=== PATIENT | female | born 1980 | race Caucasian/White ===

== ENCOUNTER 2017-03-17 05:55 | Day surgery (SDC) | payer MEDICAID ==
[2017-03-17] VITALS (14 sets, daily range): BP systolic 103–134; BP diastolic 56–81; PULSE 59–92; RESP 13–22; Ht 144.8 cm; Wt 59.0 kg
[~2017-03-17] VITALS: Ht 144.8 cm; Wt 59.0 kg
[2017-03-17 09:12] LABS: BASOPHIL # 0.1 10^3/ul (0.0-0.1); BASOPHILS % 0.7 % (0.0-2.0); EOSINOPHILS # 0.6 10^3/ul (0.0-0.5); EOSINOPHILS % 8.3 % (0.0-7.0); HEMOGLOBIN 13.8 g/dl (12.0-16.0); LYMPHOCYTES # 2.7 10^3/ul (0.8-2.9); LYMPHOCYTES % 37.7 % (15.0-51.0); MEAN CORPUSCULAR HEMOGLOBIN 30.5 pg (29.0-33.0); MEAN CORPUSCULAR HGB CONC 33.7 g/dl (32.0-37.0); MEAN CORPUSCULAR VOLUME 90.7 fl (82.0-101.0); MEAN PLATELET VOLUME 8.8 fl (7.4-10.4); MONOCYTE # 0.4 10^3/ul (0.3-0.9); MONOCYTES % 5.8 % (0.0-11.0); NEUTROPHIL # 3.4 10^3/ul (1.6-7.5); NEUTROPHILS % 47.2 % (39.0-77.0); PLATELET COUNT 258 10^3/UL (140-415); RED BLOOD COUNT 4.52 10^6/ul (4.20-5.40); RED CELL DISTRIBUTION WIDTH 13.2 % (11.5-14.5); WHITE BLOOD COUNT 7.1 10^3/ul (4.8-10.8)
[2017-03-17] MEDS ORDERED: FENTAnyl 50 MCG/ML VIAL ONE (09:27)
[2017-03-17] MEDS ORDERED: MIDAZOLAM 1 MG/ML 2 ML INJ ONE (09:27)
[2017-03-17] MEDS ORDERED: PROPOFOL 20 ML ONE (09:27)
[2017-03-17] MEDS ORDERED: METOCLOPRAMIDE 10 MG INJ ONE (09:37)
[2017-03-17] MEDS ORDERED: ONDANSETRON 4 MG INJ ONE (09:37)
[2017-03-17] MEDS ORDERED: DEXAMETHASONE 4 MG/ML 1 ML INJ ONE (09:37)
[2017-03-17] MEDS ORDERED: KETOROLAC 30 MG INJ ONE (09:37)
[2017-03-17] MEDS ORDERED: CEFAZOLIN 1 GM INJ ONE (09:37)
[2017-03-17] MEDS ORDERED: OXYTOCIN 10 UNIT INJ ONE (09:43)
[2017-03-17] MEDS ORDERED: EPHEDrine SULFATE 50 MG/5 ML SYG ONE (09:48)
[2017-03-17] MEDS ORDERED: METOCLOPRAMIDE 10 MG INJ IV PRN (10:00)
[2017-03-17] MEDS ORDERED: EPHEDrine SULFATE 50 MG/5 ML SYG IV PRN (10:00)
[2017-03-17] MEDS ORDERED: IBUPROFEN 600 MG TAB PO PRN (10:00)
[2017-03-17] MEDS ORDERED: KETOROLAC 30 MG INJ IV PRN (10:00)
[2017-03-17] MEDS ORDERED: MEPERIDINE 25 MG INJ IV PRN (10:00)
[2017-03-17] MEDS ORDERED: ONDANSETRON 4 MG INJ IV PRN (10:00)
[2017-03-17] MEDS ORDERED: DIPHENHYDRAMINE 50 MG INJ IV PRN (10:00)
[2017-03-17] MEDS ORDERED: morphine (1 MG/ML) 10ML SYRINGE IV PRN ×3 (10:00)
[2017-03-17] MEDS ORDERED: FENTAnyl 50 MCG/ML VIAL IV PRN ×3 (10:00)
--- NOTE | 2017-03-17 10:08 | OPR ---
Date/Time of Note Date/Time of Note DATE: 03/17/17 TIME: 09:52 Operative Report Free Text/Dictation 36 years old female admitted to the hospital with a diagnosis of missed at 8 weeks gestation spotting and mild bleeding past few days to undergo a dictation suction curettage. Procedure Date: Mar 17, 2017 Preoperative Diagnosis Missed early incomplete Postoperative Diagnosis Same as above Operation/Procedure Performed Dilatation and suction curettage Surgeon see signature line Pediatric Anesthesiologist None Anesthesia Type: general, spinal Anesthesiologist: STEPHANIE THOMAS MD Estimated Blood Loss: other (50-75 cc) Transfusion none Specimen Products of conception Grafts/Implants none Tubes/Drains None Complications none Pt Condition Post Procedure: stable Disposition: other Indications Missed Procedure Description Under satisfactory general anesthesia patient prepped and draped and placed in dorsal lithotomy position bimanual pelvic examination, normal maritus introitus normal vagina minimal amount of blood noted in the vaginal canal ,cervix multiparous uterus 8-9 weeks size adnexa not palpable. Weighted speculum introduced into the vagina anterior cervical lip grasped by Andres cotto uterine cavity sounded 12 cm cervical dilatation further advanced with Hanks dilator, suction curettage performed using Vacurette #9 then it was followed with medium size curetting ,all the specimen in toto submitted to the pathology , patient received 30 units of Pitocin through the IV infusion, estimated blood loss between 50-75 cc mixed with the products of conception she tolerated procedure well transferred to recovery room in a good condition. CHRIS URRUTIA MD Mar 17, 2017 10:03
== END 2017-03-17 11:50 | disposition home or self-care (01) ==
LOC: SDS 05:55
PROVIDERS: ATTEND Obstetrics & Gynecology
DX: O02.1 Missed abortion (principal)
CPT/HCPCS: 59820; 84703; 85025; 86900; 86901; 88305; J0690; J1100; J1885; J2250; J2405; J2765; J3010; Z7512; Z7610; J2590